=== PATIENT | female | born 1985 | race Caucasian/White ===

== ENCOUNTER 2018-04-13 15:05 | Emergency (ER) | payer MEDICAID ==
[2018-04-13 15:10] VITALS: BP 116/56
--- NOTE | 2018-04-13 15:58 | ER Document Report ---
HPI - HPI Pain Level: 4 Notes: Patient is a 32-year-old female who presents to the emergency department with complaint of left foot pain. Patient reports the pain has been ongoing for the last 6 months, started during the second trimester of her and her baby is now 3 months old. She states that she has been seen by a electric transfer operator in [place] who requested her to have an MRI. Patient states that she is here today because she would like us to do an MRI of her foot. Patient denies any new injury. Patient ambulated into the emergency department with a steady gait. Past Medical History - General Information source: Patient - Social History Smoking Status: Never Smoker Family History: Reviewed & Not Pertinent - Medical History Medical History: Negative Surgical Hx: Negative - Immunizations Immunizations up to date: Yes Vertical Provider Document - CONSTITUTIONAL Notes: PHYSICAL EXAMINATION: GENERAL: Well-appearing, well-nourished and in no acute distress. HEAD: Atraumatic, normocephalic. EYES: Pupils equal round extraocular movements intact, conjunctiva are normal. ENT: Nares patent NECK: Normal range of motion LUNGS: No respiratory distress Musculoskeletal: Normal range of motion NEUROLOGICAL: Normal speech, normal gait. PSYCH: Normal mood, normal affect. SKIN: Warm, Dry, normal turgor, no rashes or lesions noted. Course - Re-evaluation Re-evalutation: Patient has no acute complaints today, denies any new injury to her foot. Patient reports chronic pain and wants an MRI. Patient is very upset as she states that Medicaid will not to give her her new cards and her doctor will not order the MRI until she is cleared for Medicaid. Patient further reports that her Medicaid is now and she does not have current Medicaid which she feels is the problem. Patient believes that her foot pain is related as it started during her so she feels that Medicaid should have covered it. Patient reports that she has Efren filed formal complaints with her congressman and that she is considering hiring a data migration consultant. I explained to the patient that we do not do routine MRIs out of the emergency department but only emergent MRIs. I instructed patient that we would be happy to treat her if she has any acute complaints today but that we would not be able to order an outpatient MRI of her foot for her chronic pain. Patient discharged home in stable condition. - Vital Signs Vital signs: Temp Pulse Resp BP Pulse Ox 98.8 F 84 17 116/56 L 99 04/13/18 15:09 04/13/18 15:09 04/13/18 15:09 04/13/18 15:09 04/13/18 15:09 Discharge - Discharge Clinical Impression: Foot pain Qualifiers: Laterality: left Qualified Code(s): M79.672 - Pain in left foot Condition: Stable Disposition: HOME, SELF-CARE Additional Instructions: Please call your [facility] since they are your primary care provider and discussed with them putting in the order for the MRI of your foot that you are requesting. I would advise also getting proof of your Medicaid so that when you go to have your MRI done you will not have any additional troubles. Please return to the emergency department if you have any acute medical needs.
== END 2018-04-13 16:17 | disposition home or self-care (01) ==
LOC: ER 15:05
DX: M79.672 Pain in left foot (principal)
CPT/HCPCS: 99283